=== PATIENT | female | born 1985 | race African-American/Black ===

== ENCOUNTER 2018-10-09 13:21 | Emergency (ER) | payer MEDICAID ==
[~2018-10-09] VITALS: Ht 167.6 cm; Wt 66.5 kg
[2018-10-09 14:07] VITALS: BP 115/76
--- NOTE | 2018-10-09 14:11 | NUR ---
PT TO LOBBY WITH FAMILY
--- NOTE | 2018-10-09 15:38 | NUR ---
PT TO CHAIR [place]tazar
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
--- NOTE | 2018-10-09 16:38 | NUR ---
Pt taken to x-ray via w/c
[2018-10-09 17:56] VITALS: BP 125/75
== END 2018-10-09 17:56 | disposition home or self-care (01) ==
LOC: MED 13:21
DX: R51 Headache (principal); V89.2XXA Person injured in unspecified motor-vehicle accident, traffic, initial encounter; Y93.89 Activity, other specified; Y92.89 Other specified places as the place of occurrence of the external cause; Y99.8 Other external cause status
CPT/HCPCS: 71045; 72040; 99283